=== PATIENT | female | born 1965 | race American Indian/Alaskan Native ===

== ENCOUNTER 2016-08-09 17:18 | Emergency (ER) | payer SELFPAY ==
[~2016-08-09] VITALS: Ht 167.6 cm; Wt 54.4 kg
[2016-08-09 18:15] LABS: Hematocrit 39.4 % (36.0-46.0); Hemoglobin 13.4 g/dL (12.2-16.2); Mean Corpuscular Hemoglobin 30.9 pg (28.0-32.0); Mean Platelet Volume 9.5 fL (7.4-10.4); Platelet Count (auto) 353 10^3/uL (140-450); Red Cell Distribution Width 13.1 % (11.6-16.0); SUSPECT VIEW TRANSMISSION; White Blood Cell 27.5 10^3/uL (4.4-10.8)
[2016-08-09 18:24] LABS: Myelocytes % 0; Promyelocytes % 0; Reactive Lymphocytes 0
[2016-08-09 18:43] LABS: Urine Bilirubin Negative (Negative); Urine Color Brown (Yellow); Urine Glucose Normal (Normal); Urine Ketone Negative (Negative); Urine Mucus FEW (None Seen); Urine Nitrite Negative (Negative); Urine RBC 366 /hpf (0 - 4); Urine Squamous Epithelial Cell FEW /hpf (<5)
[2016-08-09 18:45] LABS: Urine Blood 3+ /uL (Negative)
[2016-08-09 18:48] LABS: Albumin 2.5 g/dL (3.4-5.0); BUN/Creatinine Ratio 10.6; Calcium 8.3 mg/dL (8.5-10.1); Potassium 4.2 mmol/L (3.5-5.1)
[2016-08-09 18:51] LABS: Bilirubin, Total 0.9 mg/dL (0.2-1.0); Total Protein 7.4 g/dL (6.4-8.2)
[2016-08-09] MEDS ORDERED: SODIUM CHLORIDE 0.9% 1,000 ML IV ONE (19:30)
[2016-08-09] MEDS ORDERED: KETOROLAC TROMETH 30 MG/ML 1ML VIAL IV ONE (19:30)
[2016-08-09] MEDS ORDERED: ACETAMINOPHEN 500 MG TAB PO ONE (19:45)
[2016-08-09 20:02] VITALS: BP 135/78
[2016-08-09 20:20] LABS: Anisocytosis Slight; Metamyelocytes % 1; Platelet Estimate Adequate
[2016-08-09] MEDS ORDERED: cefTRIAXone 1GM/50ML D5W 50 ML IV ONE (21:00)
[2016-08-09] MEDS ORDERED: CYCLOBENZAPRINE HCL 10 MG TAB PO ONE (21:45)
== END 2016-08-09 22:06 | disposition home or self-care (01) ==
LOC: ER 17:23
DX: J18.9 Pneumonia, unspecified organism (principal); N39.0 Urinary tract infection, site not specified; D72.829 Elevated white blood cell count, unspecified; Z87.442 Personal history of urinary calculi
CPT/HCPCS: 36415; 74176; 80053; 81001; 83605; 85007; 85027; 87040; 96361; 96365; 96375; 99285; J0696; J1885; J7030

== ENCOUNTER 2021-01-15 18:20 | Emergency (ER) | payer MEDICAID ==
[~2021-01-15] VITALS: Ht 167.6 cm; Wt 59.0 kg
[2021-01-15] MEDS ORDERED: AMOXICILLIN/CLAVUL 875 MG TAB PO ONE (19:15)
[2021-01-15] MEDS ORDERED: TETANUS-DIPTH-ACEL PERTUSSIS 0.5ML SYR Tdap IM ONE (19:15)
[2021-01-15] MEDS ORDERED: HYDROcodone-ACET 5/325MG TAB PO ONE (19:15)
[2021-01-15 23:00] VITALS: BP 140/77
[2021-01-15 23:20] LABS: Basophils # (auto) 0 10 ^3/uL (0-0.2); Basophils % (auto) 0.4 % (0.0-2.0); Eosinophils # (auto) 0.1 10 ^3/uL (0-0.8); Eosinophils % (auto) 1.6 % (0.0-7.0); Hematocrit 43.1 % (36.0-46.0); Hemoglobin 14.2 g/dL (12.2-16.2); Lymphocytes # (auto) 1.9 10 ^3/uL (0.4-5.4); Lymphocytes % (auto) 21.1 % (10.0-50.0); Mean Corpuscular Hgb Conc. 33.1 g/dL (32.0-36.0); Mean Corpuscular Volume 90.9 fL (80.0-100.0); Monocytes # (auto) 0.7 10 ^3/uL (0-1.3); Monocytes % (auto) 7.6 % (0.0-12.0); Neutrophils # (auto) 6.2 10 ^3/uL (1.6-8.6); Neutrophils % (auto) 69.3 % (37.0-80.0); Red Blood Cells 4.74 10^6/uL (4.0-5.20); Red Cell Distribution Width 13.3 % (11.8-14.3); White Blood Cell 8.9 10^3/uL (4.4-10.8)
[2021-01-15 23:37] LABS: BUN/Creatinine Ratio 19.3; Calcium 9.4 mg/dL (8.5-10.1); Potassium 3.9 mmol/L (3.5-5.1)
== END 2021-01-15 23:45 | disposition left against medical advice (07) ==
LOC: ER 18:20
DX: S81.851A Open bite, right lower leg, initial encounter (principal); S61.452A Open bite of left hand, initial encounter; S11.95XA Open bite of unspecified part of neck, initial encounter; S01.95XA Open bite of unspecified part of head, initial encounter; I10 Essential (primary) hypertension; Z88.2 Allergy status to sulfonamides; W54.0XXA Bitten by dog, initial encounter; Y93.89 Activity, other specified; Y92.89 Other specified places as the place of occurrence of the external cause; Y99.8 Other external cause status
CPT/HCPCS: 36415; 70450; 73130; 73590; 80048; 81025; 83605; 85025; 87040; 90471; 90715